=== PATIENT | female | born 1940 | race Caucasian/White ===

== ENCOUNTER 2023-06-21 16:30 | Emergency (ER) | payer MEDICARE, OTHER, SELFPAY ==
[2023-06-21] VITALS (7 sets, daily range): BP systolic 90–118; BP diastolic 41–66
[2023-06-21 17:28] LABS: % Eosinophils 0.9 % (0-6); % Immature Granulocytes 0.4 % (0-0.5); % Lymphocytes 11.3 % (20.5-51.1); % Monocytes 7.4 % (1.7-9.3); Absolute Basophils 0.1 10^3/uL (0-0.2); Absolute Eosinophils 0.1 10^3/uL (0-0.7); Absolute Lymphocytes 0.8 10^3/uL (1.2-3.4); Absolute Monocytes 0.5 10^3/uL (0.1-0.6); Absolute Neutrophils 5.4 10^3/uL (1.4-6.5); Hematocrit 35.7 % (37.0-47.0); Hemoglobin 12.5 g/dL (12.0-16.0); Mean Corpuscular Hgb 31.3 pg (27.0-31.0); Mean Corpuscular Volume 89.5 fL (81.0-99.0); Mean Platelet Volume 9.7 fL (7.4-10.4); Nucleated Red Blood Cells % 0 %; Platelet Count 168 10^3/uL (130-400); Red Blood Cell Count 3.99 10^6/uL (4.20-5.40); Red Cell Dist. Width 12.5 % (11.5-14.5); White Blood Cell Count 6.9 10^3/uL (4.8-10.8)
[2023-06-21 17:31] LABS: COVID-19 Antigen Negative (Negative)
[2023-06-21 17:34] LABS: ALT (SGPT) 21 U/L (0-35); AST (SGOT) 37 U/L (14-36); Albumin 3.9 g/dl (3.5-5.0); Alkaline Phosphatase 73 U/L (38-126); Blood Urea Nitrogen 19 mg/dl (7-17); Calcium 9.6 mg/dl (8.4-10.2); Carbon Dioxide 23 mmol/L (22-30); Chloride 101 mmol/L (98-107); Glucose 90 mg/dl (70-99); Sodium 133 mmol/L (135-145); Total Protein 6.8 g/dl (6.3-8.2); eGFR > 60.00
[2023-06-21] MEDS: TYLENOL 650 MG PO (19:37)
[2023-06-21] MEDS: NSS 1000 IV (19:38)
--- NOTE | 2023-06-21 19:39 | ED.GENMED ---
History of Present Illness
General
Chief Complaint: Abdominal Symptoms
Source: patient
Exam Limitations: none
Time Seen by Provider: 06/21/23 18:59
Travel History
Have you had any contact with someone who has COVID-19?: No
Do you have any symptoms of coronavirus? Fever > 100 degrees, chills, cough, shortness of breath, sore throat, loss of taste or smell, muscle aches, or headache?: No
History of Present Illness
History of Present Illness:
82-year-old female presents from home where she lives by herself with 3 days worth of loose stools. She notes multiple episodes daily. No significant abdominal pain nausea or vomiting. No chest pain. Today she felt weak and short of breath with
activity. She denies cough. No urinary symptoms. No known sick contacts. She has a history of hypertension hyperlipidemia.
Past History
Past History
ED Past Medical History: GERD; Negative IDDM, NIDDM or PA
ED Past Surgical History: Negative Cardiac
Social History
Tobacco: Non-smoker
Alcohol: None
Drug: None
Personal: Other
Living: with family
Employment: Other
Family History
Family History: Other
Phy Exam
Physical Exam
Physical Exam:
General: Well-appearing female no acute respiratory distress
HEENT: Normocephalic atraumatic neck is supple mucosa slightly dry
Heart: Regular rate and rhythm no murmurs
Lungs: Clear to auscultation bilaterally no wheeze
Abdomen: Soft nontender normal bowel sounds nondistended
Extremities: No cyanosis or edema
Skin: Warm no rash
Course
Orders/Labs/Results
Orders:
Orders
06/21/23 17:13
CMP [Comprehensive Metabolic Panel] Urgent
COVID-19 Antigen Urgent
Source: Nasal Swab
Complete Blood Count/With Diff Urgent
INF RAPID [Influenza A+B Rapid Molecular] Urgent
MOLLY Source: Nasal Swab
Specimen Description:
06/21/23 19:18
0.9% Sodium Chloride 1000 ml [Nss] 1,000 ml IV BOLUS
Acetaminophen [Tylenol] 650 mg PO NOW STA
Abnormal Lab Results
06/21/23
17:13
RBC 3.99 L 10^6/uL
(4.20-5.40)
Hct 35.7 L %
(37.0-47.0)
MCH 31.3 H pg
(27.0-31.0)
Absolute Lymphs (auto) 0.8 L 10^3/uL
(1.2-3.4)
Neutrophils % 79.0 H %
(42.2-75.2)
Lymphocytes % 11.3 L %
(20.5-51.1)
Sodium 133 L mmol/L
(135-145)
BUN 19 H mg/dl
(7-17)
AST 37 H U/L
(14-36)
06/21/23 17:13
06/21/23 17:13
Vital Signs
Initial and Last Documented VS:
Initial Vital Signs
Temp Pulse Resp BP Pulse Ox
99.0 F 76 18 90/41 100
06/21/23 16:55 06/21/23 16:55 06/21/23 16:55 06/21/23 16:55 06/21/23 16:55
Last Documented Vital Signs
Temp Pulse Resp BP Pulse Ox
98.3 F 70 18 118/66 97
06/21/23 21:07 06/21/23 19:27 06/21/23 19:27 06/21/23 21:00 06/21/23 21:00
MDM/Problems Addressed
Differential Diagnosis Includes:
Loose stool for 3 days. Question possible viral illness. Question possible colitis. Abdomen exam benign without tenderness. Will check for electrolyte abnormality with blood work. She does appear dry on exam will hydrate and give Tylenol for
symptoms. If patient has ability to have stool culture we
*Critical Care Note
Total Time (30-74mins, 75-104mins- exclusive of procedures): Not Applicable
Update Note
Update Note:
Patient feeling much better after fluids and Tylenol. She is ambulatory back to baseline. She feels hungry. At this point suspect underlying viral illness. Stable for discharge.
ED Attending Note
-
Portions of this chart may have been created with voice recognition software.� Occasional wrong word or��sound alike� substitutions may have occurred due to the inherent limitations of voice recognition software.
Discharge Plan
Departure
Patient Disposition: Home (Routine Discharge)
Date of Disposition: 06/21/23
Time of Disposition: 21:18
Patient with high blood pressure during this ER visit?: No
Discharge Problem:
Diarrhea
Instructions: Diarrhea in adolescents and adults
Prescriptions:
No Action
levothyroxine [Synthroid] 88 MCG tablet
88 mcg PO DAILY
hydrochlorothiazide 12.5 MG capsule
12.5 mg PO DAILY
escitalopram oxalate 10 MG tablet
20 mg PO DAILY
metformin 500 mg Tablet
500 mg PO BID
omeprazole 40 mg Capsule,Delayed Release(Dr/Ec)
40 mg PO DAILY
rosuvastatin 20 mg Tablet
20 mg PO DAILY
bupropion HCl 150 mg Tablet Extended Release 24 Hr
150 mg PO DAILY
Referrals:
Pnio Stone DO [Family Provider] -
Activity Restrictions/Additional Instructions:
Rest. Drink plenty of fluids. Advance to bland diet as tolerated. Return for worsening symptoms otherwise follow-up with family doctor
Interventions
Interventions:
*Risk Screen - Suicide Last Done: 06/21/23 16:55
*General Assessment Last Done: 06/21/23 19:27
*Neglect/Abuse Screening Last Done: 03/15/24 16:55
ED- Fall Risk Assessment Last Done: 06/21/23 17:51
*ED COVID-19 Vaccine History Last Done: 06/21/23 16:55
MX-Mzhaca-Hjvmdltttd Assessment Last Done: 06/21/23 19:28
== END 2023-06-21 21:47 | disposition home or self-care (01) ==
LOC: EMR 16:30
PROVIDERS: EMERGENCY PHYSICIAN Emergency Medicine; FAMILY PHYSICIAN Family Medicine
DX: R19.7 Diarrhea, unspecified (principal); I10 Essential (primary) hypertension; E78.5 Hyperlipidemia, unspecified
CPT/HCPCS: 99284; 96360; 80053; 85025; 87502; 87811

== ENCOUNTER → 2023-08-15 19:14 | Outpatient (REF) | payer MEDICARE, OTHER, SELFPAY | LOC: WDC 19:14 | PROVIDERS: ATTENDING PHYSICIAN Family Medicine | DX: Z12.31 Encounter for screening mammogram for malignant neoplasm of breast (principal) | CPT/HCPCS: 77063; 77067 ==

== ENCOUNTER 2024-03-13 16:50 | Emergency (ER) | payer MEDICARE, OTHER, SELFPAY ==
[2024-03-13 16:51] VITALS: BMI 22.2
[2024-03-13 17:06] VITALS: BP 157/69
[2024-03-13 17:22] LABS: % Basophils 1.2 % (0-2); % Eosinophils 2.7 % (0-6); % Immature Granulocytes 0.2 % (0-0.5); % Lymphocytes 33.4 % (20.5-51.1); % Monocytes 8.5 % (1.7-9.3); Absolute Basophils 0.1 10^3/uL (0-0.2); Absolute Eosinophils 0.2 10^3/uL (0-0.7); Absolute Lymphocytes 2.9 10^3/uL (1.2-3.4); Absolute Monocytes 0.7 10^3/uL (0.1-0.6); Absolute Neutrophils 4.7 10^3/uL (1.4-6.5); Hematocrit 35.1 % (37.0-47.0); Hemoglobin 11.9 g/dL (12.0-16.0); Mean Corp Hgb Conc. 33.9 g/dL (33.0-37.0); Mean Corpuscular Hgb 31.5 pg (27.0-31.0); Mean Corpuscular Volume 92.9 fL (81.0-99.0); Mean Platelet Volume 10.1 fL (7.4-10.4); Nucleated Red Blood Cells % 0 %; Platelet Count 208 10^3/uL (130-400); Red Blood Cell Count 3.78 10^6/uL (4.20-5.40); Red Cell Dist. Width 12.5 % (11.5-14.5); White Blood Cell Count 8.6 10^3/uL (4.8-10.8)
[2024-03-13 17:52] LABS: NT-proBNP 952 pg/ml; Troponin I < 0.012 ng/ml
[2024-03-13 18:05] LABS: ALT (SGPT) 19 U/L (0-35); AST (SGOT) 23 U/L (14-36); Albumin 4.1 g/dl (3.5-5.0); Alkaline Phosphatase 54 U/L (38-126); Blood Urea Nitrogen 30 mg/dl (7-17); Calcium 10.3 mg/dl (8.4-10.2); Carbon Dioxide 28 mmol/L (22-30); Chloride 99 mmol/L (98-107); Glucose 81 mg/dl (70-99); Potassium 4.2 mmol/L (3.5-5.1); Sodium 138 mmol/L (135-145); Total Bilirubin 0.6 mg/dl (0.2-1.3); Total Protein 6.7 g/dl (6.3-8.2); eGFR 56.25
--- NOTE | 2024-03-13 21:40 | ED.GENMED ---
History of Present Illness
General
Chief Complaint: Swelling
Time Seen by Provider: 03/13/24 21:23
History of Present Illness
History of Present Illness:
TIME OF INITIAL ENCOUNTER: 9:45 PM
HPI: Patient presents with lower extremity edema right greater than left. She called a covering PMD and sent her to the emergency department. She has some vague shortness of breath. She also reports pain at the back of her right heel. She states
the swelling is currently better now that she has been off of her feet. Her swelling worsened when she was on her feet since [place]. She was also concerned of some splotchy redness to the distal lower extremities. She also reports a history
of diabetic neuropathy. She was also concerned about high blood pressure readings at home. She also reports pain at the back of the right heel
EXAM:
GENERAL: Well appearing in no distress
HEENT: Moist oral mucosa
CARDIOVASCULAR: No murmurs, normal heart rate, regular rhythm, No chest wall tenderness
PULMONARY: No respiratory distress, breath sounds are clear and equal
ABDOMEN: Soft with no peritoneal signs, no tenderness
NEUROLOGIC: Excellent strength all extremities, no coordination deficits
PSYCHIATRIC: Appropriate mental status, normal insight and judgement
EXTREMITIES: Some splotchy erythema noted to the distal lower extremities, 1+ edema to the right, trace edema to the left, point tenderness noted at the insertion point of the right Achilles into the calcaneus
SKIN: As above
NUMBER AND COMPLEXITY OF PROBLEMS ADDRESSED AT THE ENCOUNTER
� Chronic conditions affecting care: Diabetes, diverticular disease
� Acute Exacerbation and/or Progression of Chronic Illness: This is an acute problem
� Differential Diagnosis includes: Diabetic neuropathy, DVT, does not appear to be consistent with cellulitis on examination, heart failure
AMOUNT AND/OR COMPLEXITY OF DATA TO BE REVIEWED AND ANALYZED
� I performed an independent evaluation of and my interpretation is:
EKG: Sinus 65, left axis deviation, left bundle branch block, unchanged from 09/24/2022
CT:
X-rays: Chest x-ray shows no acute abnormality
Laboratory Studies: White count 8.6, hemoglobin 11.9, chemistries unremarkable, BNP 952
Other: Ultrasound shows no evidence of DVT however a left-sided Cassidy's cyst is noted
� Review of other/old records: BNP 952, troponin less than 0.012, calcium 10.3 but otherwise chemistries relatively unremarkable, CBC normal
� Clinical information was obtained by an independent historian: None needed
� Prescriptions/Medications Considered but not given:Considered increasing diuretic however there is very minimal swelling on examination and she states she is prone to hyponatremia�she takes hydrochlorothiazide 12.5 mg daily.
� Further testing considered but not performed:
RISK OF COMPLICATIONS AND/OR MORBIDITY OR MORTALITY OF PATIENT MANAGEMENT
� Social determinants of health affecting care: Lives at home
� Discussion with other providers:
� Escalation of care including admission/observation vs risk of discharge considered: Based on workup, no clear evidence of heart failure, no clear evidence of cellulitis. Will send for ultrasound imaging.
ANY OTHER UPDATES:
12:15 AM: I reassessed patient. Workup is relatively unremarkable and there is no evidence for DVT. Encouraged her to keep her legs elevated is much as possible.
Past History
Past History
ED Past Medical History: GERD; Negative IDDM, NIDDM or GA
ED Past Surgical History: Negative Cardiac
Social History
Tobacco: Non-smoker
Alcohol: None
Drug: None
Personal: Other
Living: with family
Employment: Other
Family History
Family History: Other
Phy Exam
Physical Exam
Physical Exam:
See HPI
Scores
Heart Failure Risk
Heart Failure Risk Score: Not Applicable
Course
Orders/Labs/Results
Orders:
Orders
03/13/24 17:08
Electrocardiogram (*1) Urgent
Reason for Study: Shortness of Breath
EKG- Treatment ONCE
CXR2 [CR Chest - 2 Views ] Urgent
Comment:
Reason For Exam: sob and ankle swelling
03/13/24 17:12
Complete Blood Count/With Diff Urgent
Comprehensive Metabolic Panel Urgent
NT-proBNP Urgent
Troponin I Urgent
03/13/24 22:01
US Legs, Bilateral [US Periph Venous LOWER Ext [place]] Urgent
Comment:
Reason For Exam: R>L swelling
Abnormal Lab Results
03/13/24
17:12
RBC 3.78 L 10^6/uL
(4.20-5.40)
Hgb 11.9 L g/dL
(12.0-16.0)
Hct 35.1 L %
(37.0-47.0)
MCH 31.5 H pg
(27.0-31.0)
Absolute Monos (auto) 0.7 H 10^3/uL
(0.1-0.6)
BUN 30 H mg/dl
(7-17)
Calcium 10.3 H mg/dl
(8.4-10.2)
03/13/24 17:12
03/13/24 17:12
Vital Signs
Initial and Last Documented VS:
Initial Vital Signs
Temp Pulse Resp BP Pulse Ox
37.1 C 70 16 157/69 98
03/13/24 17:06 03/13/24 17:06 03/13/24 17:06 03/13/24 17:06 03/13/24 17:06
Last Documented Vital Signs
Temp Pulse Resp BP Pulse Ox
37.1 C 70 16 144/60 95
03/13/24 17:06 03/13/24 17:06 03/13/24 17:06 03/14/24 00:00 03/14/24 00:00
*Critical Care Note
Total Time (30-74mins, 75-104mins- exclusive of procedures): Not Applicable
ED Attending Note
-
Portions of this chart may have been created with voice recognition software.� Occasional wrong word or��sound alike� substitutions may have occurred due to the inherent limitations of voice recognition software.
Discharge Plan
Departure
Prescriptions:
No Action
levothyroxine [Synthroid] 88 MCG tablet
88 mcg PO DAILY
hydrochlorothiazide 12.5 MG capsule
12.5 mg PO DAILY
escitalopram oxalate 10 MG tablet
20 mg PO DAILY
metformin 500 mg Tablet
500 mg PO BID
omeprazole 40 mg Capsule,Delayed Release(Dr/Ec)
40 mg PO DAILY
rosuvastatin 20 mg Tablet
20 mg PO DAILY
bupropion HCl 150 mg Tablet Extended Release 24 Hr
150 mg PO DAILY
Referrals:
Pino Stone DO [Family Provider] -
Interventions
Interventions:
*Risk Screen - Suicide Last Done: 03/13/24 17:06
*General Assessment Last Done: 03/13/24 21:40
*Neglect/Abuse Screening Last Done: 03/13/24 17:06
*ED COVID-19 Vaccine History Last Done: 03/13/24 21:40
ED- Cardiac Assessment Last Done: 03/13/24 23:14
ED- Pulmonary Assessment Last Done: 03/13/24 23:14
ED-Skin Assessment Last Done: 03/13/24 23:14
Discharge Date and Time
Print Language: CHINESE
[2024-03-13 21:42] VITALS: BP 128/51
[2024-03-13 22:00] VITALS: BP 134/54
[2024-03-13 23:00] VITALS: BP 145/56
[2024-03-14] VITALS: BP 144/60
== END 2024-03-14 00:55 | disposition home or self-care (01) ==
LOC: EMR 16:50
PROVIDERS: Emergency Medicine; EMERGENCY PHYSICIAN Emergency Medicine; FAMILY PHYSICIAN Family Medicine
DX: R60.0 Localized edema (principal); E11.40 Type 2 diabetes mellitus with diabetic neuropathy, unspecified; K21.9 Gastro-esophageal reflux disease without esophagitis
CPT/HCPCS: 99284; 71046; 80053; 83880; 84484; 85025; 93005; 93970

== ENCOUNTER → 2024-07-30 14:04 | Outpatient (REF) | payer MEDICARE, OTHER, SELFPAY | LOC: RAD 14:04 | PROVIDERS: ATTENDING PHYSICIAN Family Medicine | DX: I87.2 Venous insufficiency (chronic) (peripheral) (principal) | CPT/HCPCS: 93970 ==

== ENCOUNTER 2024-09-11 06:29 | Day surgery (SDC) | payer MEDICARE, OTHER, SELFPAY ==
[2024-09-11 09:50] LABS: Glucose - Point of Care 102 mg/dl (70-99)
== END 2024-09-11 11:01 | disposition home or self-care (01) ==
LOC: GI 06:29
PROVIDERS: ATTENDING PHYSICIAN Internal Medicine Gastroenterology
DX: R12 Heartburn (principal); K31.7 Polyp of stomach and duodenum; K44.9 Diaphragmatic hernia without obstruction or gangrene; Q39.9 Congenital malformation of esophagus, unspecified
CPT/HCPCS: 43239; 88305; 82962; 88342

== ENCOUNTER 2025-02-15 13:55 | Emergency (ER) | payer MEDICARE, OTHER, SELFPAY ==
[2025-02-15 14:06] VITALS: BP 174/76
[2025-02-15 14:35] LABS: Hematocrit 37.4 % (37.0-47.0); Hemoglobin 12.4 g/dL (12.0-16.0); Mean Corp Hgb Conc. 33.2 g/dL (33.0-37.0); Mean Corpuscular Volume 93.0 fL (81.0-99.0); Nucleated Red Blood Cells % 0 %; Platelet Count 268 10^3/uL (130-400); Red Cell Dist. Width 13.4 % (11.5-14.5)
[2025-02-15 14:56] LABS: ALT (SGPT) 17 U/L (0-35); AST (SGOT) 22 U/L (14-36); Albumin 4.2 g/dl (3.5-5.0); Alkaline Phosphatase 69 U/L (38-126); Blood Urea Nitrogen 25 mg/dl (7-17); Calcium 10.5 mg/dl (8.4-10.2); Carbon Dioxide 32 mmol/L (22-30); Chloride 98 mmol/L (98-107); Glucose 99 mg/dl (70-99); Potassium 3.6 mmol/L (3.5-5.1); Sodium 136 mmol/L (135-145); Total Protein 6.8 g/dl (6.3-8.2); eGFR > 60.00
[2025-02-15 15:07] LABS: Troponin I 0.014 ng/ml
--- NOTE | 2025-02-15 15:21 | ED.GENMED ---
History of Present Illness
General
Chief Complaint: Post Operative Problem(s)
Source: patient
Exam Limitations: none
Time Seen by Provider: 02/15/25 14:53
History of Present Illness
History of Present Illness:
84-year-old female presents complaining of right sided chest discomfort shoulder discomfort pain into the jaw and teeth. This has been associate with shortness of breath and overwhelming fatigue as well. Of note, patient had a paraesophageal
hernia repaired at [facility] done on January 27. Prior to the surgery she had spiked her blood pressure and her existing 12-1/2 mg of hydrochlorothiazide was increased to 25 mg daily. She was cleared by family doctor and knot bumper for
the surgery. Postoperatively in the hospital her blood pressure was spiking into the 200s over 80s. She started on losartan postoperatively. Since then her blood pressure has been slightly improved but higher than usual. She denies any dark or
tarry stools. She is not anticoagulated. The pain is occasionally made worse with deep breathing. Any minimal exertion does reproduce shortness breath.
Past History
Past History
ED Past Medical History: GERD; Negative IDDM, NIDDM or MS
ED Past Surgical History: Negative Cardiac
Social History
Tobacco: Non-smoker
Alcohol: None
Drug: None
Personal: Other
Living: with family
Employment: Other
Family History
Family History: Other
Phy Exam
Physical Exam
Physical Exam:
General: Well-appearing female no acute respiratory distress
HEENT normal cephalic atraumatic
Heart: Regular rate and rhythm
Lungs: Clear no wheeze
Abdomen: Postoperative incisions look well without erythema or swelling mild tenderness over the incisions
Extremities: No cyanosis
Course
Orders/Labs/Results
Orders:
Orders
02/15/25 13:55
EKG [Electrocardiogram (*1)] Urgent
Reason for Study: Chest Pain
02/15/25 13:56
EKG- Treatment ONCE
02/15/25 14:10
Electrocardiogram (*1) Urgent
Reason for Study: Chest Pain
EKG- Treatment ONCE
02/15/25 14:22
Complete Blood Count/With Diff Urgent
Comprehensive Metabolic Panel Urgent
Troponin I Urgent
02/15/25 15:19
0.9% Sodium Chloride 1000 ml [Nss] 1,000 ml IV BOLUS
02/15/25 15:20
CT Chest PE Study Urgent
Comment:
Reason For Exam: sob, chest pain, recent surgery
Abnormal Lab Results
02/15/25
14:22
RBC 4.02 L 10^6/uL
(4.20-5.40)
Carbon Dioxide 32 H mmol/L
(22-30)
BUN 25 H mg/dl
(7-17)
Calcium 10.5 H mg/dl
(8.4-10.2)
02/15/25 14:22
02/15/25 14:22
Vital Signs
Initial and Last Documented VS:
Initial Vital Signs
Temp Pulse Resp BP Pulse Ox
97.9 F 76 20 174/76 95
02/15/25 14:06 02/15/25 14:06 02/15/25 14:06 02/15/25 14:06 02/15/25 14:06
Last Documented Vital Signs
Temp Pulse Resp BP Pulse Ox
97.9 F 66 21 152/61 96
02/15/25 14:06 02/15/25 17:45 02/15/25 17:45 02/15/25 17:43 02/15/25 17:45
MDM/Problems Addressed
Differential Diagnosis Includes:
Patient with fatigue, shortness of breath, chest discomfort following paraesophageal hernia repair done on January 27. She also notes elevated blood pressure reading since then.
Differential could include postoperative deconditioning versus persistent hypertension postoperatively versus pulmonary embolism pneumonia pleural effusion ACS
EKG shows chronic left bundle branch block will check labs. Given the risk since surgery will order PE study
*Pulse Oximetry
SaO2: 95
Oxygen Mode of Delivery: Room air
Patient hypoxic: no
*Critical Care Note
Total Time (30-74mins, 75-104mins- exclusive of procedures): Not Applicable
Update Note
Update Note:
Workup here essentially unremarkable. CT without acute findings. There is a small hiatal hernia noted in the chest. There is a small loculated pleural effusion noted. Troponin is normal. Etiology of symptoms of fatigue shortness of breath and
chest discomfort somewhat unclear however with reassuring workup no indication for admission will advise she follow-up with cardiology and her surgeon. Stable for discharge.
ED Attending Note
-
Portions of this chart may have been created with voice recognition software.� Occasional wrong word or��sound alike� substitutions may have occurred due to the inherent limitations of voice recognition software.
Discharge Plan
Departure
Patient Disposition: Home (Routine Discharge)
Date of Disposition: 02/15/25
Time of Disposition: 19:10
Patient with high blood pressure during this ER visit?: No
Discharge Problem:
Fatigue, Chest pain
Instructions: Chest Pain DCA Follow Up
Prescriptions:
No Action
levothyroxine [Synthroid] 88 MCG tablet
88 mcg PO DAILY
hydrochlorothiazide 12.5 MG capsule
12.5 mg PO DAILY
escitalopram oxalate 10 MG tablet
20 mg PO DAILY
metformin 500 mg Tablet
500 mg PO BID
omeprazole 40 mg Capsule,Delayed Release(Dr/Ec)
40 mg PO DAILY
rosuvastatin 20 mg Tablet
20 mg PO DAILY
bupropion HCl 150 mg Tablet Extended Release 24 Hr
150 mg PO DAILY
Referrals:
Pino Stone DO [Family Provider, Family Practice]
Activity Restrictions/Additional Instructions:
Please continue current medications. Stay hydrated. Follow-up with your knot bumper and surgeon. Return if worse otherwise
Interventions
Interventions:
*Risk Screen - Suicide Last Done: 02/15/25 14:06
*General Assessment Last Done: 02/15/25 14:06
*Neglect/Abuse Screening Last Done: 02/15/25 14:06
*ED- Fall Risk Assessment Last Done: 02/15/25 15:42
*ED COVID-19 Vaccine History Last Done: 02/15/25 15:42
*ED Influenza Vaccine History Last Done: 02/15/25 15:42
Discharge Date and Time
Print Language: BENINESE
[2025-02-15 15:30] VITALS: BMI 20.8
[2025-02-15 17:43] VITALS: BP 152/61
[2025-02-15] MEDS: NSS 1000 IV (18:55)
[2025-02-15 19:00] VITALS: BP 152/79
== END 2025-02-15 19:30 | disposition home or self-care (01) ==
LOC: EMR 13:55
PROVIDERS: EMERGENCY PHYSICIAN Emergency Medicine; FAMILY PHYSICIAN Family Medicine
DX: R07.89 Other chest pain (principal); R53.83 Other fatigue; K21.9 Gastro-esophageal reflux disease without esophagitis
CPT/HCPCS: 99284; 96360; 71275; 80053; 84484; 85025; 93005; Q9967

== ENCOUNTER → 2025-04-05 14:01 | Outpatient (REF) | payer MEDICARE, OTHER, SELFPAY | LOC: RCS 14:01 | PROVIDERS: ATTENDING PHYSICIAN Physician Assistant; FAMILY PHYSICIAN Family Medicine | DX: R07.9 Chest pain, unspecified (principal); R06.02 Shortness of breath | CPT/HCPCS: 93306 ==